=== PATIENT | female | born 1970 | race Caucasian/White ===

== ENCOUNTER 2019-05-04 05:55 | Day surgery (SDC) | payer MEDICAID, SELFPAY ==
[2019-04-26 12:58] VITALS: BMI 28.0
[2019-05-04] VITALS (7 sets, daily range): BP systolic 114–168; BP diastolic 72–93; PULSE 61–77; RESP 14–16; TEMP 36.2–36.3; O2SAT 94–99; BMI 27.8
[2019-05-04 06:41] LABS: Hemoglobin 12.2 g/dL (12.0-15.0); Mean Corpuscular Hgb 30.9 pg (27.0-32.0); Mean Corpuscular Volume 93.7 fL (81-99); Mean Platelet Vol. 11.5 fl (6.2-12.0); Platelet Count 318 K/mm3 (150-450); RBC Distribution Width CV 14.5 % (11.6-14.6); RBC Distribution Width SD 49.8 fl (35.1-43.9); Red Blood Count 3.95 M/mm3 (4.2-5.4); White Blood Count 8.9 K/mm3 (4.4-11.0)
[2019-05-04 06:50] LABS: Anion Gap 9 (5-15); BUN 18 mg/dL (7-18); BUN/Creat Ratio 16.4 RATIO (10-20); Calcium,Total 8.8 mg/dL (8.5-10.1); Chloride 100 mmol/L (98-107); EST Glomerular Filtration Rate 56 mL/min (>60); Est Glom Filt Rate - Afr Amer 68 mL/min (>60); Estimated Creatinine Clearance 51.18 ml/min; Glucose 88 mg/dL (74-106); Potassium 3.9 mmol/L (3.5-5.1); Sodium Level 137 mmol/L (136-145)
[2019-05-04 07:07] LABS: Internal QC Validated? YES +Cl - CLEAR BKGD; Pregnancy, Urine Negative Negative
--- NOTE | 2019-05-04 07:30 | RAD_ITS ---
STUDY: X-RAY - RIGHT ANKLE REASON FOR EXAM: Female, 49 years old. ORIF of the lateral malleolar fracture. TECHNIQUE: 3 view(s) and 9 intraoperative images of the ankle. COMPARISON: None. FINDINGS: Intraoperative fluoroscopic services provided for open reduction and internal fixation of the distal fibular fracture with screw and sideplate fixation device. There is good alignment. RAD/Ankle min 3 Views IMPRESSION: Intraoperative imaging provided for ORIF of the distal fibula. There is good alignment. Electronically Signed: Aldo Chapin, at 15:16 EDT , Service support ,
[2019-05-04] MEDS: Cefazolin 2 GM in 0.9% Normal Saline 100 ML IV (07:52)
[2019-05-04] MEDS: Bupivacaine 0.5% PF 10 ML VIAL (08:59)
--- NOTE | 2019-05-04 09:33 | RAD_ITS ---
STUDY: X-RAY - RIGHT ANKLE REASON FOR EXAM: Female, 49 years old. Status post ORIF of the distal fibula. TECHNIQUE: 3 view(s) of the ankle. COMPARISON: Comparison is made with prior intraoperative examination. FINDINGS: The patient is status post open reduction internal fixation of the distal fibular fracture. There is good alignment. Normal tibiotalar articulation and ankle mortise. Plantar spur. The visualized subtalar, talonavicular, calcaneocuboid and tarsal articulations are normal. The soft tissue structures are unremarkable. RAD/Ankle min 3 Views IMPRESSION: Satisfactory appearance of the post ORIF of the distal fibular fracture. Electronically Signed: Aldo Chapin, at 15:18 EDT , Service support ,
--- NOTE | 2019-05-04 09:35 | DCINST_ITS ---
Discharge Activity: May Not Drive, May not drive while taking narcotic pain medications., May Not Shower, May Take a Tub Bath, Use Walker, Use Crutches Ice area for (Minutes): 20 - Apply ice behind right knee 20 minutes of each hour while awake Weight Bearing Status: No weight bearing - Strict nonweightbearing to the right lower extremity Keep extremity elevated above heart level: Operative Extremity Call your doctor if your incision/area has: Sudden Increased Bleeding Call your doctor if you observe: Fever of 101 or Higher, Numbness or Tingling, Change in Color, Shortness of breath, Dizziness, Chest pain, Increased palpitations (irregular heartbeat), Calf discomfort, Uncontrolled pain Cleanse incision/area with: Keep Dressing Clean & Dry - Do not remove dressing. Keep fully intact until seen by Dr. Lewis. Allergies/Adverse Reactions: Allergies tramadol Allergy (Intermediate, Verified 05/04/19 06:29) Unknown Medications to take at Discharge budesonide-formoterol HFA 80 mcg-4.5 mcg/actuation aerosol inhaler 2 puff INHALATION BID PRN 04/14/19 fenofibrate 160 mg tablet 160 mg PO DAILY 04/14/19 lansoprazole 30 mg capsule,delayed release 30 mg PO DAILY 04/14/19 nicotine 14 mg/24 hr daily transdermal patch 1 patch TRANSDERMAL DAILY 04/14/19 pravastatin 40 mg tablet 40 mg PO DAILY 04/14/19 lisinopril 40 mg tablet 40 mg PO DAILY #30 tab 04/26/19 Atorvastatin Calcium [Lipitor] 40 mg PO QHS 04/28/19 Hydrochlorothiazide 12.5 mg PO DAILY 04/28/19 Acetaminophen 1,000 mg PO Q8 #30 tab 05/04/19 Oxycodone HCl 5 mg PO Q6H PRN 7 Days #30 tab 05/04/19 The following prescriptions were given: Acetaminophen 1,000 mg PO Q8 #30 tab Prescription Printed Oxycodone HCl 5 mg PO Q6H PRN 7 Days #30 tab PRN Reason: pain Prescription Printed Primary Care Physician: Irving Ortega MD [Primary Care Provider] - Please follow up with your Primary Care Physician in: Please see PCP in 7-10 days from surgery. Test Results: Test results from this visit will be discussed in further detail at your follow- up appointment, if applicable. Please Follow Up With: Zahra Lewis DPM When: Please follow up next week at your previously scheduled appointment. Proposed Discharge Date: 05/04/19
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
== END 2019-05-04 11:13 | disposition home or self-care (01) ==
LOC: SDC 05:55 → AC 05:56
PROVIDERS: Anesthesiology; Family Provider Family Medicine; PCP Family Medicine; Referring Provider Podiatrist Foot & Ankle Surgery; Visit Provider Podiatrist Foot & Ankle Surgery
DX: S82.61XA Displaced fracture of lateral malleolus of right fibula, initial encounter for closed fracture (principal); S93.431A Sprain of tibiofibular ligament of right ankle, initial encounter; S93.421A Sprain of deltoid ligament of right ankle, initial encounter; W19.XXXA Unspecified fall, initial encounter; Y93.9 Activity, unspecified; Y92.009 Unspecified place in unspecified non-institutional (private) residence as the place of occurrence of the external cause; Y99.9 Unspecified external cause status; I89.8 Other specified noninfective disorders of lymphatic vessels and lymph nodes; R60.0 Localized edema; I10 Essential (primary) hypertension; E78.00 Pure hypercholesterolemia, unspecified; M19.90 Unspecified osteoarthritis, unspecified site; H54.7 Unspecified visual loss; K21.9 Gastro-esophageal reflux disease without esophagitis; F17.210 Nicotine dependence, cigarettes, uncomplicated; Z79.899 Other long term (current) drug therapy; Z91.81 History of falling
CPT/HCPCS: 27792; 27829; 64445; 73610; 76000; 80048; 81025; 85027; C1713; J7120; J2405

== ENCOUNTER 2019-05-11 16:15 | Emergency (ER) | payer MEDICAID, SELFPAY ==
[2019-05-04 06:31] VITALS: BMI 27.8
[2019-05-11 16:16] VITALS: BP 135/84; PULSE 81; RESP 16; TEMP 36.6; O2SAT 99; BMI 27.8
--- NOTE | 2019-05-11 17:05 | RAD_ITS ---
STUDY: X-RAY - RIGHT ANKLE REASON FOR EXAM: Female, 49 years old. Fall. Recent ankle surgery May 04. TECHNIQUE: 3 view(s) of the ankle. COMPARISON: Ankle, May 04, 2019. FINDINGS: There is a stable plate and screws along the lateral aspect of the distal fibula. There is no evidence of misalignment of the underlying bone. Normal distal tibia. Normal tibiotalar articulation and ankle mortise. Normal visualized talus and calcaneus. The visualized subtalar, talonavicular, calcaneocuboid and tarsal articulations are normal. There is soft tissue swelling over the ankle. A semiradiopaque splint lies along the posterior aspect of the foot. RAD/Ankle min 3 Views IMPRESSION: Slight increase in soft tissue edema when compared to previous study. The remainder of the findings appears stable. Electronically Signed: Juan A Toth DO at 18:00 EDT Tel [phone], Service support ,
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
--- NOTE | 2019-05-11 18:32 | ED.DEP ---
ED Disposition - Plan for ED Patient: Instructions: FALL, Mechanical, CONTUSION, Lower Extremity Referrals: Irving Ortega MD [Primary Care Provider] - Additional Instructions: see your surgeon as instructed
[2019-05-11 18:51] VITALS: BP 140/86; PULSE 59; RESP 16; O2SAT 96
== END 2019-05-11 18:56 | disposition home or self-care (01) ==
LOC: ED 18:40
PROVIDERS: Emergency Provider Emergency Medicine; Family Provider Family Medicine; PCP Family Medicine
DX: S82.891D Other fracture of right lower leg, subsequent encounter for closed fracture with routine healing (principal); X58.XXXD Exposure to other specified factors, subsequent encounter; S90.01XA Contusion of right ankle, initial encounter; V00.141A Fall from scooter (nonmotorized), initial encounter; Y93.9 Activity, unspecified; Y92.9 Unspecified place or not applicable; Y99.9 Unspecified external cause status; Z72.0 Tobacco use; Z79.899 Other long term (current) drug therapy
CPT/HCPCS: 29515; 73610; 99282

== ENCOUNTER 2020-04-19 12:37 | Emergency (ER) | payer MEDICAID, SELFPAY ==
[2020-04-19 12:38] VITALS: BP 151/105; PULSE 69; RESP 18; TEMP 36.4; O2SAT 98; BMI 24.5
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
[2020-04-19 14:21] VITALS: BP 160/100; PULSE 56; PULSE 59; RESP 14; O2SAT 100
== END 2020-04-19 14:22 | disposition home or self-care (01) ==
LOC: ED 14:12
PROVIDERS: Emergency Provider Emergency Medicine; PCP Family Medicine
DX: M54.6 Pain in thoracic spine (principal); M25.511 Pain in right shoulder; G89.29 Other chronic pain; V40.5XXA Car driver injured in collision with pedestrian or animal in traffic accident, initial encounter; Y93.9 Activity, unspecified; Y92.9 Unspecified place or not applicable; Y99.9 Unspecified external cause status; J44.9 Chronic obstructive pulmonary disease, unspecified; I10 Essential (primary) hypertension; E78.5 Hyperlipidemia, unspecified; F17.200 Nicotine dependence, unspecified, uncomplicated
CPT/HCPCS: 99282

== ENCOUNTER 2023-06-09 11:24 | Emergency (ER) | payer MEDICAID, SELFPAY ==
[2023-06-09 11:25] VITALS: BP 161/88; PULSE 66; RESP 18; TEMP 36.1; O2SAT 98; BMI 34.0
--- NOTE | 2023-06-09 11:47 | ED.RN ---
Wound cleansed and dressed with bacitracin dressing
--- NOTE | 2023-06-09 15:27 | ED.VIS.LOWEX ---
HPI History of Present Illness Chief Complaint: Lower Extremity Injury Narrative Narrative: 53-year-old female with pain at the base of the first metatarsal on the right foot. Patient states she has a history of gout and is not sure this feels exactly the same but she is concerned for cellulitis because her cat scratched her foot. It was right in this area. There is now redness and swelling. States pain is increasing. No systemic signs or symptoms. No trauma PFSH PFSH Medical History Abnormal EKG Closed fracture of right ankle COPD (chronic obstructive pulmonary disease) Essential hypertension GERD (gastroesophageal reflux disease) Hyperlipidemia Home Medications cefuroxime axetil 500 mg tablet 500 mg PO BID #19 tabs 06/09/23 [Rx Last Taken Unknown] Allergy/AdvReac Type Severity Reaction Status Date / Time tramadol Allergy Intermediate Unknown Verified 06/09/23 11:27 Family History Mother Heart disease Myocardial infarction, Onset Age: 54 Brother Hypertension Sister Hypertension Surgical History History of salpingectomy Social History Smoking Status: Current every day smoker tobacco type: cigarettes quit status: considering quitting alcohol intake: current alcohol intake frequency: holidays/special occasions only substance use type: does not use caffeine: Yes Type: carbonated beverages Number of servings: 1 ROS ROS ED Constitutional Constitutional ED: Denies chills, fever(s) or sweats Eyes Eyes: Denies blurry vision or change in vision ENT ENT ED: Denies ear pain or sore throat Cardiovascular Cardiovascular: Denies chest pain, palpitations or racing heartbeat Respiratory/Chest Respiratory/Chest: Denies cough, dyspnea or sputum Gastrointestinal Gastrointestinal: Denies abdominal pain, constipation, diarrhea, nausea or vomiting Genitourinary Genitourinary ED: Denies dysuria, hematuria or urinary frequency Musculoskeletal Musculoskeletal: Denies arthralgias, myalgias or neck pain Integumentary Reports rash; Denies abscess or Abrasions Neurologic Neurologic: Denies headache(s), paresthesias or weakness Psychiatric Psychiatric: Denies anxiety, depression, suicidal ideation or suicidal thoughts Endocrine Endocrinology: Denies polydipsia or polyuria EXAM Physical Exam Const Vital Signs: 06/09/23 11:25 Temperature 97 F L Temperature Source Temporal Pulse Rate 66 Respiratory Rate 18 Blood Pressure 161/88 H Blood Pressure Mean 112 Pulse Ox 98 Oxygen Delivery Method Room Air Positive well nourished General Appearance ED: NAD HEENT Reports moist mucous membranes Resp normal respiratory effort Cardio regular rate and regular rhythm Extremity Extremity Narrative: Tenderness to palpation over the base of the medial first metatarsal. There are some erythema and edema here. There is some mild increased warmth. Full range of motion of the first great toe. There is pain elicited somewhat when range. Right foot neurovascular tachycardia prescription for all 5 toes Neuro oriented x3 and CN's II-XII intact bilaterally Sensorium / Orientation: alert Motor Exam: strength 5/5 throughout Psych mental status grossly normal MDM MDM MDM Narrative Medical decision making narrative: Patient presenting for concern for cellulitis versus podagra. She has a history of gout but states not quite the same. She did have a cat scratch her foot at home. This is her cat. There were no bites. On examination she has tenderness over the area where she was scratched and there is some erythema and warmth. Given the patient was scratched I will cover her with antibiotics. Patient started on antibiotics with first dose in the ED. Wound was cleaned and dressing was applied. She was given colchicine here and a second dose to fill the pharmacy. Return precautions were discussed. Wound care was discussed. Impression: 1. Cellulitis 2. Gout Lab Data Attestation: I reviewed the patient's lab results. Discharge Plan Triage Chief Complaint: Lower Extremity Injury ED Provider: Tahir Yip Dx/Rx/DC Orders Instructions: ED Cellulitis, ED Wound Care Prescriptions: New cefuroxime axetil 500 mg tablet 500 mg PO BID Qty: 19 0RF Primary Care Provider: Donny Pelletier Referrals: Donny Pelletier [[facility]] - 3-5 Days Disposition Disposition: Home, Self Care Discharge Date/Time: 06/09/23 12:27
== END 2023-06-09 12:27 | disposition home or self-care (01) ==
LOC: ED 12:12
PROVIDERS: Emergency Provider Student in an Organized Health Care Education/Training Program; PCP Family Medicine; Visit Provider Student in an Organized Health Care Education/Training Program
DX: L03.115 Cellulitis of right lower limb (principal); M10.9 Gout, unspecified; F17.210 Nicotine dependence, cigarettes, uncomplicated
CPT/HCPCS: 99282